=== PATIENT | female | born 1955 | race Caucasian/White ===

== ENCOUNTER 2016-08-22 18:27 | Emergency (ER) | payer BC ==
--- NOTE | 2016-08-22 19:12 | ED NECK/BACK PAIN COMPLAINT ---
History of Present Illness General Chief Complaint: Low Back Pain/Injury Stated Complaint: PT IS HAVING BAD BACK PAIN Source: patient Exam Limitations: no limitations Vital Signs & Intake/Output Vital Signs & Intake/Output Vital Signs Date Time Temp Pulse Resp B/P B/P Pulse O2 O2 Flow FiO2 Mean Ox Delivery Rate 08/22 2132 100.1 08/22 2132 100.1 76 20 118/54 96 Room Air 08/23 2055 100.9 08/23 2015 100.9 81 18 122/64 97 Room Air 08/23 1831 100.2 106 26 143/87 97 Room Air Allergies Coded Allergies: No Known Allergies (08/22/16) Reconcile Medications Cyclobenzaprine HCl 5 MG TABLET 1 TAB PO TIDPRN PRN MUSCLE SPASMS Montelukast Sodium 10 MG TABLET 1 TAB PO DAILY ALLERGIES (Reported) Naproxen (Naprosyn) 500 MG TABLET 1 TAB PO BID PRN PAIN AND INFLAMMATION Triage Note: PER PT PAIN TO L FLANK LAST WEEK THEN MOVED TO RT SCAPULA, PAIN WALKING PAIN WITH INSPIRRATION, CHILLS NO FEVER, DENIES URINE CO Triage Nurses Notes Reviewed? yes HPI: This patient is a 61-year-old female who presented to the emergency department today for evaluation of back pain. She reported that a couple weeks ago she was having intermittent right-sided posterior shoulder pain. She reported that the pain moved to the center of her back between her shoulder blades and has been constant for the last week. It is worse when she is laying on her side and with certain movements. It is better when she is laying flat on her back. Coughing and sneezing makes the pain worse. The patient reported the pain gets up to a 10 out of 10 and is sharp. The patient denied any headaches, visual changes, jaw pain, arm pain, numbness or tingling in her extremities, difficult breathing , cough, abdominal pain, nausea, vomiting, or any other associated symptoms. (JOSE ELIAS SAENZ PA-C) Past History Travel History Traveled to [place] past 21 day No Medical History Any Pertinent Medical History? see below for history Neurological: NONE EENT: NONE Cardiovascular: NONE Respiratory: NONE Gastrointestinal: NONE Hepatic: NONE Renal: NONE Musculoskeletal: NONE Psychiatric: NONE Endocrine: NONE Surgical History Surgical History: non-contributory Psychosocial History What is your primary language Brazilian Tobacco Use: Never used Family History Hx Contributory? No (JOSE ELIAS SAENZ PA-C) Review of Systems Review of Systems Constitutional: Reports: no symptoms. Eyes: Reports: no symptoms. Ears, Nose, Throat, Mouth: Reports: no symptoms. Respiratory: Reports: no symptoms. Cardiovascular: Reports: no symptoms. Gastrointestinal/Abdominal: Reports: no symptoms. Musculoskeletal: Reports: see HPI. Skin: Reports: no symptoms. Neurological/Psychological: Reports: no symptoms. All Other Systems: Reviewed and Negative (JOSE ELIAS SAENZ PA-C) Physical Exam Physical Exam Neck: normal inspection, supple, full range of motion, normal alignment, no midline tenderness Comments: Well-developed well-nourished person in no acute distress HEENT: Normal EENT exam, head normocephalic, moist mucous membranes PERRLA bilaterally Back: Pain with side bending. Tenderness to palpation between the shoulder blades in the midline. Negative straight leg raise bilaterally. No CVA tenderness bilaterally. Normal gait Cardiovascular: Regular rate and rhythm with no murmurs, rubs, or gallops Respiratory: Chest nontender. No respiratory distress. Breath sounds clear to auscultation bilaterally with no wheezes, rales, rhonchi Extremity: Normal and equal pulses Neuro: Alert oriented x3, motor sensory normal, cranial nerves II through XII grossly intact. 5 out of 5 process inspector strength bilaterally Skin: No appreciable rash on exposed skin, skin is warm and dry. Psych: Mood and affect is normal, memory and judgment is normal. (JOSE ELIAS SAENZ PA-C) Progress Differential Diagnosis: AAA, aortic dissection, C spine injury, carotid dissection, cauda equina syn, herniated disc, myofascial strain, pyelo/UTI, sciatica, spinal cord inj, thoracic outlet syn, T/L spine injury, ureterolithiasis, ACS, PE Plan of Care: Orders Procedure Date/time Status Add-on Test (ER Only) 08/23 1931 Active LIPID PANEL 08/22 1916 Complete TROPONIN LEVEL 08/23 1903 Complete D-DIMER 08/23 1903 Complete COMPREHENSIVE METABOLIC PANEL 08/23 1903 Complete CBC WITHOUT DIFFERENTIAL 08/23 1903 Complete EKG 08/23 1903 Active Laboratory Tests 08/22/161916: Anion Gap 10, Estimated GFR > 60, BUN/Creatinine Ratio 23.3, Glucose 102 H, Calcium 9.1, Total Bilirubin 0.7, AST 16, ALT 22, Alkaline Phosphatase 43, Troponin I < 0.01, Total Protein 6.7, Albumin 3.8, Globulin 2.9, Albumin/ Globulin Ratio 1.3, Triglycerides 41, Cholesterol 196, LDL Cholesterol, Calc 102 , HDL Cholesterol 86 H, Cholesterol/HDL Ratio 2, D-Dimer 406 H, CBC w Diff NO MAN DIFF REQ, RBC 4.18 L, MCV 87.0, MCH 29.2, RDW 13.9, MPV 8.9, Gran % 69.4, Lymphocytes % 17.1 L, Monocytes % 10.8 H, Eosinophils % 1.5, Basophils % 1.2, Absolute Granulocytes 5.9, Absolute Lymphocytes 1.5, Absolute Monocytes 0.9 H, Absolute Eosinophils 0.1, Absolute Basophils 0.1, PUBS MCHC 33.5 Diagnostic Imaging: Viewed by Me: Radiology Read, CT Scan. Discussed w/RAD: Radiology Read, CT Scan. Radiology Impression: PATIENT: ANNETTE RAMIREZ PRESENT AGE: 61 PATIENT ACCOUNT NO: [id number] : 59 LOCATION: [facility] ORDERING PHYSICIAN: JOSE ELIAS SAENZ PA-C SERVICE DATE: 08/22/16 EXAM TYPE: CAT - CTA CHEST-PULMONARY EMBOLISM EXAMINATION: CT ANGIOGRAM OF THE CHEST WITH AND WITHOUT CONTRAST (CT PULMONARY ANGIOGRAM FOR PE) CLINICAL INFORMATION: Back pain. Elevated d-dimer COMPARISON: None TECHNIQUE: Prior to contrast administration, noncontrast localization images were obtained. Subsequently, multidetector volumetric imaging was performed from the thoracic inlet to below the diaphragms following the administration of 80 mL Omnipaque 350 intravenous contrast. No contrast reaction reported. Sagittal, coronal, and MIP oblique sagittal reformatted images were obtained on the CT workstation, uploaded to PACS, and reviewed. Total exam dose-length product 315.63 mGy-cm. FINDINGS: QUALITY OF STUDY/CONTRAST BOLUS: Satisfactory PULMONARY ARTERIES: No central or segmental pulmonary emboli. THORACIC AORTA: No aneurysm or dissection. LUNG: No focal consolidation, nodules or masses. PLEURA: No pleural effusion or pneumothorax. MEDIASTINUM: Normal heart size. No pericardial effusion. No hilar or mediastinal lymphadenopathy. No evidence of septal bowing or right heart strain. CHEST WALL/AXILLA: No axillary or internal mammary lymphadenopathy. OSSEOUS STRUCTURES: No acute or suspicious osseous abnormality. UPPER ABDOMEN: Unremarkable. No reflux of contrast into the hepatic veins to suggest elevated right heart pressures. IMPRESSION: Normal CT chest. No evidence of pulmonary embolism. VTE: negative DICTATED BY: NATHAN SOUZA MD DATE/TIME DICTATED:08/22/162100 PILOT CONTROL OPERATOR HELPER:MEDARDO DATE/TIME TRANSCRIBED:08/22/162100 CONFIDENTIAL, DO NOT COPY WITHOUT APPROPRIATE AUTHORIZATION. <Electronically signed in Other Vendor System> SIGNED BY: NATHAN SOUZA MD 08/22/162126 CXR Impression: PATIENT: ANNETTE RAMIREZ PRESENT AGE: 61 PATIENT ACCOUNT NO: [id number] : 59 LOCATION: [facility] ORDERING PHYSICIAN: JOSE ELIAS SAENZ PA-C SERVICE DATE: 08/22/16 EXAM TYPE: RAD - XRY-CHEST XRAY, PA AND LATERAL EXAMINATION: XR CHEST CLINICAL INFORMATION: Pneumonia back pain COMPARISON: Prior chest July 2016 TECHNIQUE: 2 views of the chest were obtained. FINDINGS: Lungs clear. Cardiac silhouette mediastinum pulmonary vascularity normal. There is an S-shaped scoliosis noted unchanged with the apex left curvature in the thoracolumbar region measured at 27 degrees between T9 and L1 IMPRESSION: No acute disease. Stable scoliosis DICTATED BY: VONDA SOLANO MD DATE/TIME DICTATED:08/22/161945 PILOT CONTROL OPERATOR HELPER:MEDARDO DATE/TIME TRANSCRIBED:08/22/161945 CONFIDENTIAL, DO NOT COPY WITHOUT APPROPRIATE AUTHORIZATION. <Electronically signed in Other Vendor System> SIGNED BY: VONDA SOLANO MD 08/22/161950 Initial ED EKG: normal axis, normal intervals, normal sinus rhythm, LVH, no ST T wave changes, 86 bpm (DANY BLANTON,JOSE ELIAS) Departure Departure Disposition: HOME OR SELF CARE Condition: Stable Clinical Impression Primary Impression: Back pain Qualifiers: Back pain location: thoracic back pain Chronicity: unspecified Back pain laterality: bilateral Qualified Code: M54.6 - Pain in thoracic spine Referrals: AMARILIS PEARL,NATALY Lopez (PCP/Family) Additional Instructions: Please take Flexeril as prescribed for muscle relaxation. Take naproxen as prescribed for pain and inflammation. Rest. Avoid any strenuous activity or heavy lifting. You may apply ice or heat to the affected area as needed. Gentle stretching. You may follow-up with your primary care physician for any persistent symptoms. Return to the emergency department for any worsening symptoms or concerns. Departure Forms: Customer Survey General Discharge Information Prescriptions: Current Visit Scripts Cyclobenzaprine HCl 1 TAB PO TIDPRN PRN MUSCLE SPASMS #10 TAB Naproxen (Naprosyn) 1 TAB PO BID PRN PAIN AND INFLAMMATION #20 TAB (JOSE ELIAS SAENZ PA-C) PA/CLEANING MANAGER Co-Sign Statement Statement: ED Attending supervision documentation- [] I saw and evaluated the patient. I have also reviewed all the pertinent lab results and diagnostic results. I agree with the findings and the plan of care as documented in the PA's/CLEANING MANAGER's documentation. x I have reviewed the ED Record and agree with the PA's/CLEANING MANAGER's documentation. [] Additions or exceptions (if any) to the PAs/CLEANING MANAGER's note and plan are summarized below: [] (MALCOLM PEARL,REUBEN)
[2016-08-22 19:27] LABS: ABSOLUTE BASOPHIL COUNT 0.1 /CUMM (0.0-0.2); ABSOLUTE EOSINOPHIL COUNT 0.1 /CUMM (0.0-0.7); ABSOLUTE GRANULOCYTE CT 5.9 /CUMM (1.4-6.5); ABSOLUTE LYMPH COUNT 1.5 /CUMM (1.2-3.4); ABSOLUTE MONOCYTE COUNT 0.9 /CUMM (0.10-0.60); BASOPHIL % 1.2 % (0.0-2.0); EOSINOPHIL % 1.5 % (0-5); GRANULOCYTE % 69.4 % (42.2-75.2); HEMATOCRIT 36.4 % (37-47); MEAN CORPUSCULAR HGB 29.2 PG (27.0-31.0); MEAN CORPUSCULAR HGB CONC 33.5 G/DL (33.0-37.0); MEAN PLATELET VOLUME 8.9 FL (7.4-10.4); PLATELET COUNT 213 /CUMM (130-400); RBC DISTRIBUTION WIDTH 13.9 % (11.5-14.5); RED BLOOD CELL CT 4.18 /CUMM (4.20-5.40); WHITE BLOOD CELL COUNT 8.5 /CUMM (4.8-10.8)
--- NOTE | 2016-08-22 19:51 | RADIOLOGY REPORT ---
EXAMINATION: XR CHEST CLINICAL INFORMATION: Pneumonia back pain COMPARISON: Prior chest July 2016 TECHNIQUE: 2 views of the chest were obtained. FINDINGS: Lungs clear. Cardiac silhouette mediastinum pulmonary vascularity normal. There is an S-shaped scoliosis noted unchanged with the apex left curvature in the thoracolumbar region measured at 27 degrees between T9 and L1 IMPRESSION: No acute disease. Stable scoliosis
[2016-08-22] MEDS ORDERED: MONTELUKAST SOD10 M1 PO (19:55)
--- NOTE | 2016-08-22 21:27 | CT SCAN REPORT ---
EXAMINATION: CT ANGIOGRAM OF THE CHEST WITH AND WITHOUT CONTRAST (CT PULMONARY ANGIOGRAM FOR PE) CLINICAL INFORMATION: Back pain. Elevated d-dimer COMPARISON: None TECHNIQUE: Prior to contrast administration, noncontrast localization images were obtained. Subsequently, multidetector volumetric imaging was performed from the thoracic inlet to below the diaphragms following the administration of 80 mL Omnipaque 350 intravenous contrast. No contrast reaction reported. Sagittal, coronal, and MIP oblique sagittal reformatted images were obtained on the CT workstation, uploaded to PACS, and reviewed. Total exam dose-length product 315.63 mGy-cm. FINDINGS: QUALITY OF STUDY/CONTRAST BOLUS: Satisfactory PULMONARY ARTERIES: No central or segmental pulmonary emboli. THORACIC AORTA: No aneurysm or dissection. LUNG: No focal consolidation, nodules or masses. PLEURA: No pleural effusion or pneumothorax. MEDIASTINUM: Normal heart size. No pericardial effusion. No hilar or mediastinal lymphadenopathy. No evidence of septal bowing or right heart strain. CHEST WALL/AXILLA: No axillary or internal mammary lymphadenopathy. OSSEOUS STRUCTURES: No acute or suspicious osseous abnormality. UPPER ABDOMEN: Unremarkable. No reflux of contrast into the hepatic veins to suggest elevated right heart pressures. IMPRESSION: Normal CT chest. No evidence of pulmonary embolism. VTE: negative
[2016-08-22 21:33] VITALS: BP 118/54
[2016-08-22] MEDS ORDERED: CYCLOBENZAPRINE5 M2 PO (21:47)
[2016-08-22] MEDS ORDERED: NAPROSYN500 M1 PO (21:47)
== END 2016-08-22 21:54 ==
LOC: ERH 18:27
PROVIDERS: Physician Assistant
DX: M54.9 Dorsalgia, unspecified (principal)
CPT/HCPCS: 93005; 93010; 96374; J0131